=== PATIENT | male | born 1975 | race Caucasian/White ===

== ENCOUNTER 2019-12-22 18:16 | Emergency (ER) | payer OTHER ==
[~2019-12-22] VITALS: Ht 200.7 cm; Wt 72.6 kg
[2019-12-22] MEDS ORDERED: KEPPRA500 MG PO (22:33)
[2019-12-22] MEDS ORDERED: VALIUM5 MG PO (22:33)
== END 2019-12-22 23:04 | disposition home or self-care (01) ==
LOC: ED 18:16
DX: R56.9 Unspecified convulsions (principal); M54.5 Low back pain; F41.9 Anxiety disorder, unspecified; F17.200 Nicotine dependence, unspecified, uncomplicated
CPT/HCPCS: 72100; 96365; 96375; 99284-25; J1170; J1885; J1953; J2060; J2405

== ENCOUNTER 2020-09-12 20:31 | Emergency (ER) | payer OTHER ==
[~2020-09-12] VITALS: Ht 193 cm; Wt 80.0 kg
[~2020-09-12 20:31] MED LIST: KEPPRA500 MG PO; VALIUM5 MG PO
--- OUTSIDE RECORDS SUMMARY | 2020-09-12 20:34 | XMS ---
PreManage Notification: DENYS CAMEJO Security Supplier Diversity Director Events No recent Security Events currently on file CRITERIA MET - [facility] - Has Care Guidelines CARE PROVIDERS Vitor Frenandes [facility] Current PHONE: [phone] NIKITA MERCHANT [facility] 02/06/2020-Current PHONE: [phone] Gianna has no Care Guidelines for this patient. Care History Medical/Surgical 06/07/2019 [facility] [employer] left message requesting call back to follow up on recent ED visit.\T\nbsp; 04/12/2019 [facility] [employer] left messge requesting call back to follow up on recent ED visit.\T\nbsp; 04/05/2019 [facility] [employer] left message requesting call back to follow up on recent ED visit.\T\nbsp; E.D. VISIT COUNT (12 MO.) 3 KARLY [facility] TOTAL 3 NOTE: Visits indicate total known visits. ED/UCC VISIT TRACKING (12 MO.) 09/12/2020 20:32 KARLY Klein [place] TYPE: Emergency COMPLAINT: - MEDICAL CLEARANCE 02/03/2020 14:53 KARLY Klein [place] TYPE: Emergency COMPLAINT: - SEIZURE DIAGNOSES: - Unspecified convulsions - Other penitentiary (current) drug therapy - Nicotine dependence, unspecified, uncomplicated - Epilepsy, unspecified, not intractable, without status epilepticus 12/22/2019 18:17 KARLY Klein [place] TYPE: Emergency COMPLAINT: - BACK PAIN DIAGNOSES: - Low back pain - Nicotine dependence, unspecified, uncomplicated - Unspecified convulsions - Anxiety disorder, unspecified - Unspecified convulsions INPATIENT VISIT TRACKING (12 MO.) No inpatient visits to display in this time frame [id number]
[2020-09-12] MEDS ORDERED: GABAPENTIN300 MG PO (20:55)
== END 2020-09-12 23:40 | disposition home or self-care (01) ==
LOC: ED 20:31
DX: F15.159 Other stimulant abuse with stimulant-induced psychotic disorder, unspecified (principal); F17.200 Nicotine dependence, unspecified, uncomplicated; Z79.899 Other long term (current) drug therapy
CPT/HCPCS: 80053; 80176; 81001; 84443; 85025; 96372; 99284; J3486

== ENCOUNTER 2020-09-27 07:05 | Day surgery (SDC) | payer OTHER ==
[~2020-09-27] VITALS: Ht 193 cm; Wt 77.0 kg
[~2020-09-27 07:05] MED LIST changes: +GABAPENTIN300 MG PO
--- NOTE | 2020-09-27 09:20 | NUR ---
09/27/20 0920 Yvonne Ward 0941-PATIENT ARRIVED TO PACU ON 2L NC AWAKE RR EVEN LAYING LEFT LATERAL ABDOMEN SOFT. PATIENT DENIES PAIN OR NAUSEA. ENCOURAGED TO PASS GAS. SR WITH PEAKED T WAVESL. IVF INFUSING.
--- NOTE | 2020-09-27 10:16 | OR ---
[facility] [address], [place] [address] Signed DATE OF OPERATION: 09/27/2020 SURGEON: Antolin Vallejo MD PREOPERATIVE DIAGNOSES: 1. Episodic diarrhea. 2. Prior diagnosis of "Crohn's disease" greater than 20 years ago ([place], [place]). POSTOPERATIVE DIAGNOSIS: Normal-appearing colon and ilium. PROCEDURE: Total colonoscopy to cecum with intubation of ileum and biopsies. ANESTHESIA: Intravenous sedation, propofol infusion; Sandy Townsend CRNA. INDICATION: This 45-year-old white man is a patient of Dr. Fernandes in [place], [place]. The patient has underlying developmental problems including anxiety disorder. He lives independently though has oversight by a sander setter. Twenty years ago, he was diagnosed with Crohn's disease in [facility] according to history. The patient has had diarrhea problems episodically over 15 years. His only medication currently is gabapentin. He is said to have family history of colitis in his father. The patient has never had specific treatment for Crohn's disease due to his underlying psychiatric issues. The patient has had seizure disorder and other medical issues as well. He is admitted at this time to undergo colonoscopy to better characterize the problem and firm or refute the diagnosis of Crohn's disease. The risks of bleeding, infection, and perforation were reviewed with him. He understands and wished to proceed. FINDINGS: The prep was quite good. Complete colonoscopy was undertaken to the cecum without question. Intubation of the ileum was accomplished for at least 10 cm showing normal ileal mucosa as well. Biopsies were taken throughout to assess for occult colitis. DESCRIPTION OF PROCEDURE: The patient was brought to the surgical endoscopy suite and placed in lateral decubitus position, given intravenous sedation with propofol infusional technique by the relay shop tester. A digital rectal examination showed minimal sphincter tone. An Olympus video colonoscope was passed in the rectum and manipulated throughout the colon noting a Electronically Signed By: ANTOLIN VALLEJO MD 09/27/20 1016 PATIENT NAME: DENYS CAMEJO OPERATIVE REPORT DATE OF : 77 REPORT #: [id number] PHYSICIAN: ANTOLIN VALLEJO MD PCP: NIKITA MERCHANT MD REPORT IS CONFIDENTIAL AND NOT TO BE RELEASED WITHOUT AUTHORIZATION [facility] [address], [place] [address] Signed good prep. The scope was ultimately passed to the cecum. The ileocecal valve and appendiceal orifice were normal. With various manipulations, the ileum was able to be intubated and passed a generous length at least 10 cm possibly more. The mucosa of the ileum was entirely normal. Biopsies were taken throughout. Narrow band imaging confirmed intact villi, no sign of ulceration, no stricture or other problem. The scope was withdrawn ultimately to the cecum where biopsies were obtained. Careful withdrawal of scope allowed for biopsies throughout the colon to assess for occult colitis. The rectum was normal as well. The scope was removed. The patient was taken to the recovery room in good condition. CONCLUDING DIAGNOSIS: No current evidence of colitis, Crohn's disease, or any other inflammatory condition of the colon or ilium. PLAN: I will check pathology reports. In particular, consideration will need to be made to assess for lymphocytic colitis, which is endoscopically inapparent typically. He will return to the ongoing care of Dr. Fernandes in the meantime. Antolin Vallejo MD JM/MODL /[id number] cc: Dr. Fernandes Copies: ~ Electronically Signed By: ANTOLIN VALLEJO MD 09/27/20 1016 PATIENT NAME: DENYS CAMEJO OPERATIVE REPORT DATE OF : 77 REPORT #: [id number] PHYSICIAN: ANTOLIN VALLEJO MD PCP: NIKITA MERCHANT MD REPORT IS CONFIDENTIAL AND NOT TO BE RELEASED WITHOUT AUTHORIZATION
--- NOTE | 2020-10-01 11:59 | PATH ---
[facility] [address], [place] [address] Signed SPECIMEN(S): A TERMINAL ILEUM BIOPSY SPECIMEN(S): B CECUM BIOPSY SPECIMEN(S): C TRANSVERSE COLON BIOPSY SPECIMEN(S): D DESCENDING COLON BIOPSY SPECIMEN(S): E RECTOSIGMOID SPECIMEN(S): F RECTUM SPECIMEN SOURCE: A. TERMINAL ILEUM BIOPSY B. CECUM BIOPSY C. TRANSVERSE COLON BIOPSY D. DESCENDING COLON BIOPSY E. RECTOSIGMOID F. RECTUM CLINICAL HISTORY: Pre: Diarrhea, prior Crohn's Dx. Post: Normal colon. MICROSCOPIC DESCRIPTION: Histologic sections of all submitted blocks are examined by light microscopy. These findings, together with the gross examination, support the pathologic diagnosis. FINAL PATHOLOGIC DIAGNOSIS: A. Terminal ileum, biopsy: - Ileal mucosa with no histopathologic abnormality. - Negative for active inflammation or granulomata. - Negative for dysplasia or malignancy. B. Colon, cecum, biopsy: - Colonic mucosa with no histopathologic abnormality. - Negative for active or chronic colitis. - Negative for granulomata, dysplasia or malignancy. C. Colon, transverse, biopsy: - Colonic mucosa with no histopathologic abnormality. - Negative for active or chronic colitis. - Negative for granulomata, dysplasia, or malignancy. D. Colon, descending, biopsy: - Colonic mucosa with no histopathologic abnormality. - Negative for active or chronic colitis. - Negative for granulomata, dysplasia, or malignancy. E. Colon, rectosigmoid, biopsy: - Colonic mucosa with focal crypt architectural distortion. PATIENT NAME: SILVESTRE BENITEZ ANDREW PATHOLOGY DATE OF : 77 REPORT #: [id number] PHYSICIAN: TIMBO JOHNSON PCP: NIKITA MERCHANT MD REPORT IS CONFIDENTIAL AND NOT TO BE RELEASED WITHOUT AUTHORIZATION [facility] [address], [place] [address] Signed - Negative for active or chronic colitis. - Negative for granulomata, dysplasia, or malignancy. F. Rectum, biopsy: - Rectal mucosa with focal crypt architectural distortion. - Negative for active or chronic colitis. - Negative for granulomata, dysplasia, or malignancy. COMMENT: The stated history of Crohn's disease is noted. There is no evidence of active disease in the current biospies. Continued clinical surveillance is recommended. NRT:cml:C2NR GROSS DESCRIPTION: Six specimens are received in six containers, labeled `Silvestre Gamble. A. The specimen, labeled " Silvestre Benitez, and designated on the requisition "terminal ileum biopsy," is received in formalin and consists of 5 nayak soft tissue fragment(s) that measure 0.3-0.6 cm in greatest dimension. The specimen is entirely submitted in cassette (A1). B. The specimen, labeled " Silvestre Benitez, #2, and designated on the requisition "cecum biopsy," is received in formalin and consists of 1 nayak soft tissue fragment(s) that measure 0.7 cm in greatest dimension. The specimen is entirely submitted in cassette (B1). C. The specimen, labeled " Silvestre Benitez, #3, and designated on the requisition "transverse colon biopsy," is received in formalin and consists of 2 nayak soft tissue fragment(s) that measure 0.2 and 0.2 cm in greatest dimension. The specimen is entirely submitted in cassette (C1). D. The specimen, labeled " Silvestre Benitez, #4, and designated on the requisition "descending colon biopsy," is received in formalin and consists of 1 nayak soft tissue fragment(s) that measure 0.4 cm in greatest dimension. The specimen is entirely submitted in cassette (D1). E. The specimen, labeled " Silvestre Benitez, #5, and designated on the requisition "rectosigmoid," is received in formalin and consists of 1 nayak soft tissue fragment(s) that measure 0.4 cm in greatest dimension. The specimen is entirely submitted in cassette (E1). F. The specimen, labeled " Silvestre Benitez, #6, and designated on the requisition "rectum biopsy," is received in formalin and consists of 2 nayak soft tissue fragment(s) that measure 0.3 and 0.4 cm in greatest dimension. The specimen is entirely submitted in cassette (F1). PATIENT NAME: SILVESTRE BENITEZ ANDREW PATHOLOGY DATE OF : 77 REPORT #: [id number] PHYSICIAN: TIMBO JOHNSON PCP: NIKITA MERCHANT MD REPORT IS CONFIDENTIAL AND NOT TO BE RELEASED WITHOUT AUTHORIZATION [address] [address] Signed FB (under the direct supervision of a pathologist) The Gross Description was prepared using a voice recognition system. The report was reviewed for accuracy; however, sound-alike word errors, addition and/or deletions may occur. If there is any question about this report, please contact Client Services. PERFORMING LABORATORY: The technical component was performed by [facility], [address] [place] [id number] (Director Of Education: Jocy Joyce MD; CLIA# [id number]). Professional interpretation was performed by [facility], [facility], [address] [place] [address] (CLIA# [id number]). Diagnostician: Mary Horton MD Pathologist Electronically Signed 10/01/2020 Copies: ~ PATIENT NAME: SILVESTRE BENITEZ ANDREW PATHOLOGY DATE OF : 77 REPORT #: [id number] PHYSICIAN: TIMBO PATHOLOGY PCP: NIKITA MERCHANT MD REPORT IS CONFIDENTIAL AND NOT TO BE RELEASED WITHOUT AUTHORIZATION
== END 2020-09-27 09:50 | disposition home or self-care (01) ==
LOC: DS 07:05 → OPS 07:05
PROVIDERS: ATTEND Surgery
PROC: 0DBB8ZZ Excision of Ileum, Via Natural or Artificial Opening Endoscopic (ICD-10-PCS; principal; 2020-09-27 08:15)
DX: K50.90 Crohn's disease, unspecified, without complications (principal); F17.210 Nicotine dependence, cigarettes, uncomplicated; F41.9 Anxiety disorder, unspecified; K52.9 Noninfective gastroenteritis and colitis, unspecified; Z83.79 Family history of other diseases of the digestive system; G40.909 Epilepsy, unspecified, not intractable, without status epilepticus
CPT/HCPCS: 88305; J2001; J2704; J7121

== ENCOUNTER 2023-04-15 09:32 | Emergency (ER) | payer OTHER ==
[~2023-04-15] VITALS: Ht 193 cm; Wt 72.7 kg
--- OUTSIDE RECORDS SUMMARY | 2023-04-15 09:48 | XMS ---
PreManage Notification: DENYS CAMEJO Security It Network Administrator Events No recent Security Events currently on file CRITERIA MET - PDMP CARE PROVIDERS Vitor Fernandes [facility] [place] 02/19/2021-Current PHONE: Unknown MAYUR [facility] 02/06/2020-Current PHONE: [phone] -, Ajit- Dentist: Senior Research Engineer [facility] PHONE: [phone] -Deena- Dentist: Senior Research Engineer [facility] PHONE: [phone] Gianna has no Care Guidelines for this patient. Care History Medical/Surgical 06/07/2019 [facility] [employer] left message requesting call back to follow up on recent ED visit.\T\nbsp; 04/12/2019 [facility] [employer] left messge requesting call back to follow up on recent ED visit.\T\nbsp; 04/05/2019 [facility] [employer] left message requesting call back to follow up on recent ED visit.\T\nbsp; E.D. VISIT COUNT (12 MO.) 1 [facility] TOTAL 1 NOTE: Visits indicate total known visits. ED/UCC VISIT TRACKING (12 MO.) 04/15/2023 09:32 KARLY Klein [place] TYPE: Emergency COMPLAINT: - HEADACHE INPATIENT VISIT TRACKING (12 MO.) No inpatient visits to display in this time frame [email or web address]
[2023-04-15] MEDS ORDERED: AMOX TR-K CLV1 EAC1 PO (11:29)
[2023-04-15] MEDS ORDERED: PREDNISONE20 MG PO (11:29)
[2023-04-15 11:59] VITALS: BP 120/86
== END 2023-04-15 11:54 | disposition home or self-care (01) ==
LOC: ED 09:32
DX: J01.90 Acute sinusitis, unspecified (principal); F17.200 Nicotine dependence, unspecified, uncomplicated
CPT/HCPCS: 70450; 96374; 96375; 99284-25; J1200; J1885; J2765; J7030